=== PATIENT | female | born 1980 ===

== ENCOUNTER 2023-09-18 14:10 | Emergency (ER) | payer MEDICAID ==
[~2023-09-18] VITALS: Ht 160 cm; Wt 71.8 kg
[2023-09-18 14:12] VITALS: BP 130/81; PULSE 105; RESP 18; TEMP 98; O2SAT 100
[2023-09-18] MEDS ORDERED: buprenorphine/naloxone 8MG-2MG SUBlingual film SL SCH (16:10)
== END 2023-09-18 17:21 | disposition left against medical advice (07) ==
LOC: ER 14:11
DX: F11.23 Opioid dependence with withdrawal (principal); R52 Pain, unspecified; Z53.21 Procedure and treatment not carried out due to patient leaving prior to being seen by health care provider
CPT/HCPCS: 99281